=== PATIENT | female | born 1975 | race Caucasian/White ===

== ENCOUNTER 2016-07-05 16:02 | Emergency (ER) | payer BC ==
[~2016-07-05] VITALS: Ht 167.6 cm; Wt 97.5 kg
[2016-07-05 23:23] LABS: HEMOGLOBIN 14.6 gm/dl (12.3-15.3); RED BLOOD COUNT 4.83 M/UL (4.00-5.10); WHITE BLOOD COUNT 12.9 K/UL (4.5-11.0)
[2016-07-05 23:49] LABS: BUN/CREATININE RATIO 19 (0-10)
[2016-07-06] MEDS ORDERED: MULTI-DAY VITA1 EACH PO (11:05)
[2016-07-06] MEDS ORDERED: BIOTIN2500 MCG PO (11:06)
[2016-07-06] MEDS ORDERED: HYDROXYCUT PO (11:07)
[2016-07-06] MEDS ORDERED: PHENERGAN6.25 MG/5 PO (11:08)
[2016-07-06] MEDS ORDERED: PROVENTIL HFA 61 INH INH (11:09)
[2016-07-06] MEDS ORDERED: PULMICORT FLEX90 MCG INH (11:10)
[2016-07-06] MEDS ORDERED: SINGULAIR10 MG PO (11:10)
[2016-07-06] MEDS ORDERED: VIBRAMYCIN 100100 MG PO (11:11)
[2016-07-06] MEDS ORDERED: TYLENOL 325MG325 MG PO (11:12)
== END 2016-07-06 02:30 | disposition home or self-care (01) ==
LOC: ER1 16:02 → ZEROF 16:03 → ER1 16:03 → ZEROF 07-06 02:30 → ER1 07-06 02:30 → ZEROF 07-06 02:30
PROVIDERS: Student in an Organized Health Care Education/Training Program
DX: G45.9 Transient cerebral ischemic attack, unspecified (principal); R07.1 Chest pain on breathing; E66.9 Obesity, unspecified; I10 Essential (primary) hypertension; R53.83 Other fatigue; I34.1 Nonrheumatic mitral (valve) prolapse; Z88.1 Allergy status to other antibiotic agents; Z90.49 Acquired absence of other specified parts of digestive tract; Z23 Encounter for immunization
CPT/HCPCS: ECHO; 36415; 70450; 71010; 78452; 80053; 80061; 82550; 82553; 83874; 83880; 84443; 84484; 85025; 85379; 85610; 85730; 93005; 93017; 93306; 93971; 94664; 96360; 96372; 99285; A9502; J1650